=== PATIENT | male | born 1985 | race African-American/Black ===

== ENCOUNTER 2024-10-15 11:36 | Emergency (ER) | payer SELFPAY | END 2024-10-15 12:34 | disposition home or self-care (01) | LOC: MW.ED 11:36 | DX: B36.8 Other specified superficial mycoses (principal); Z88.0 Allergy status to penicillin; Z79.899 Other long term (current) drug therapy | CPT/HCPCS: 99283 ==

== ENCOUNTER 2024-11-04 07:55 | Emergency (ER) | payer SELFPAY | END 2024-11-04 08:49 | disposition home or self-care (01) | LOC: MW.ED 07:55 | DX: B35.6 Tinea cruris (principal); Z88.0 Allergy status to penicillin | CPT/HCPCS: 99282 ==